=== PATIENT | female | born 1960 | race Caucasian/White ===

== ENCOUNTER → 2017-09-07 | Outpatient (CLI) | payer OTHER ==
[~2017-09-07] MED LIST: ATOR20TA65 PO; DULA0.75 SC; FEN145 PO; GLY5 FT; KET10 PO; LANI SUBQ; LEVO750T25 PO; LISI-374 PO; LOR5 PO; MECL12.5 PO; MET500 PO; METF-409 PO; METF-420 PO
== END ==
LOC: LAB 14:34
PROVIDERS: ATTEND Surgery
DX: Z02.9 Encounter for administrative examinations, unspecified (principal)
CPT/HCPCS: 88305

== ENCOUNTER 2018-02-02 16:35 | Emergency (ER) | payer OTHER ==
[~2018-02-02 16:35] MED LIST changes: -METF-420 PO; +METF-421 PO
[2018-02-02 16:39] VITALS: BP 123/37
--- NOTE | 2018-02-02 16:40 | ER Report ---
History and Physical Time Seen By MD: 16:41 HPI/ROS CHIEF COMPLAINT: Left knee pain HISTORY OF PRESENT ILLNESS: This is a 57-year-old female presents to the emergency department for left knee pain. Patient states that around 1:30 today she was transporting groceries into her house and ran into the door jam of her home injuring her left knee. Patient states that she's been at home keeping the leg elevated applying ice, took 800 mg of ibuprofen and states the pain is excruciating. Patient does have some tingling in the lower extremity. Patient is unable to ambulate with the left leg. Unable to bend the knee without significant pain. Small amount of swelling noted to the patella. Denies any other concerns at this time. No chest pain or shortness of breath. REVIEW OF SYSTEMS: Respiratory: No cough, no dyspnea. Cardiovascular: No chest pain, no palpitations. Gastrointestinal: No vomiting, no abdominal pain. Musculoskeletal: As above. Allergies: Coded Allergies: Penicillins (Verified Allergy, Severe, ANAPHYLAXIS, 11/23/16) Home Meds Reported Medications Dapagliflozin Propanediol (Farxiga) 10 Mg Tablet, 1 TAB PO DAILY 02/02/18 Dulaglutide (Trulicity) 0.75 Mg/0.5 Ml Pen.injctr, SC QWEEK 11/23/16 Insulin Glargine (LANTUS) 100 Unit/Ml Soln, 92 UNIT SUBQ, ML 11/23/16 Atorvastatin Calcium (ATORVASTATIN CALCIUM) 20 Mg Tablet, 1 TAB PO QDAY, TAB TAKE ONE TABLET BY MOUTH ONCE A DAY AT BED TIME 12/04/13 Lisinopril (LISINOPRIL) 40 Mg Tablet, 40 MG PO QDAY 12/04/13 Fenofibrate,Micronized (TRICOR) 145 Mg Tab, 145 MG PO QDAY, #10 TAB TAKE 1 TABLET BY MOUTH DAILY 12/04/13 Metformin Hcl (METFORMIN HCL) 1,000 Mg Tablet, 1 TAB PO BID TAKE ONE TABLET BY MOUTH TWO TIMES A DAY 12/04/13 Past Medical/Surgical History The patient has a past medical and surgical history of hypertension hype rcholesterolemia, arthritis, type II diabetes, Crohn biopsy on cervix, melanoma excision from the arm. Reviewed Nurses Notes: Yes Hx Smoking: No Hx Substance Use Disorder: No Hx Alcohol Use: No Constitutional Vital Sign - Last 24 Hours 02/02/18 02/02/18 16:39 17:23 Temp 98.3 Pulse 71 Resp 16 B/P (MAP) 123/37 Pulse Ox 95 O2 Delivery Room Air O2 Flow Rate 2.0 Physical Exam General Appearance: The patient is alert, has no immediate need for airway protection and no current signs of toxicity. Eyes: Pupils equal and round no injection. Respiratory: Chest is non tender, lungs are clear to auscultation. Cardiac: regular rate and rhythm. Gastrointestinal: Abdomen is soft and non tender, no masses, bowel sounds no rmal. Musculoskeletal: Neck: Neck is supple and non tender. Extremities decreased range of motion, patient is able to extend the leg, suprapatellar swelling with some mild redness, no open wounds or crepitus or obvious deformities identified. No joint laxity. Skin: No rashes or lesions. DIFFERENTIAL DIAGNOSIS: After history and physical exam differential diagnosis was considered for contusion, patellar fracture, tibial plateau fracture and joint effusion. Medical Decision Making EKG/Imaging Imaging KNEE 4 VIEW LEFT COMPARISON: 11/08/2015. HISTORY: evaluate for patellar fx , trip and fall injury TECHNIQUE: 3 views FINDINGS: BONES: Mild medial compartment degenerative narrowing with small medial intercondylar notch osteophyte. Minimal patellar undersurface spurring along its far lateral margin. No other significant degenerative changes and no acute fracture or malalignment. Specifically there is no discrete patellar fracture i dentified.. SOFT TISSUES: Negative. No visible soft tissue swelling. EFFUSION: Moderate size suprapatellar effusion without layering to suggest hemarthrosis or lipohemarthrosis.. OTHER: Negative. IMPRESSION: 1. No evidence of acute patellar or other fracture in the left knee. 2. Moderate size effusion. Report Dictated By: Bhavin Arana at 02/02/2018 5:31 PM Report E-Signed By: Bhavin Arana at 02/02/2018 5:34 PM WSN:[id number] ED Course/Re-evaluation ED Course The patient was admitted to room. History and physical obtained. Differential diagnoses were considered. An IV was started. 4 mg IV Zofran and 2 mg IV morphine were given. An x-ray of the left knee showing no patellar fracture or any other acute osseous abnormalities, did show an effusion. I did review these results with the patient. I did tell the patient that this is likely a contusion and will resolve. The patient's knee was wrapped with an Yousif wrap and she was placed in a knee immobilizer. Patient does have crutches at home that she will use. Patient will follow-up with [facility] tomorrow. The patient had no other questions or concerns and was discharged home. Decision to Disposition Date: Feb 02, 2018 Decision to Disposition Time: 18:06 Depart Departure Latest Vital Signs Vital Signs Date Time Temp Pulse Resp B/P (MAP) Pulse Ox O2 Delivery O2 Flow Rate FiO2 02/02/18 17:23 2.0 02/02/18 16:39 98.3 71 16 123/37 95 Room Air Impression: Primary Impression: Left knee injury Condition: Improved Disposition: HOME OR SELF-CARE Referrals: YESSENIA ABARCA (PCP) [facility] 1 Day Patient Instructions: Contusion in Adults (ED), Knee Pain (ED) Additional Instructions: Wear the knee brace for comfort. I just the Yousif wrap as needed for the swelling. Use the crutches as needed. Follow-up with [facility] tomorrow. Take ibuprofen or Tylenol as needed for pain. Drink plenty of water. Get plenty of rest. Return to the emergency department for any other concerns or worsening symptoms. Problem Qualifiers Primary Impression: Left knee injury Encounter type: initial encounter Qualified Codes: S89.92XA - Unspecified injury of left lower leg, initial encounter ULICES RICE-BC Feb 02, 2018 16:40
[2018-02-02] MEDS ORDERED: DAPA10TA PO (16:43)
[2018-02-02] MEDS ORDERED: MORPHINE 2 MG/ML SYR IVP ONE (17:00)
[2018-02-02] MEDS ORDERED: ONDANSETRON 4 MG/2 ML VIAL IVP ONE (17:00)
--- NOTE | 2018-02-02 17:36 | RADIOLOGY IMAGING REPORT ---
FACILITY: [facility] PATIENT NAME: Valentine Alonzo : 1960 MR: [id number] V: [id number] EXAM DATE: ORDERING PHYSICIAN: ULICES RICE TECHNOLOGIST: Location: [facility] [place] Patient: Valentine Alonzo : 1960 Visit/Account:[id number] Date of Sevice: 02/02/2018 KNEE 4 VIEW LEFT COMPARISON: 11/08/2015. HISTORY: evaluate for patellar fx , trip and fall injury TECHNIQUE: 3 views FINDINGS: BONES: Mild medial compartment degenerative narrowing with small medial intercondylar notch osteophy te. Minimal patellar undersurface spurring along its far lateral margin. No other significant degener ative changes and no acute fracture or malalignment. Specifically there is no discrete patellar fract ure identified.. SOFT TISSUES: Negative. No visible soft tissue swelling. EFFUSION: Moderate size suprapatellar effusion without layering to suggest hemarthrosis or lipohemar throsis.. OTHER: Negative. IMPRESSION: 1. No evidence of acute patellar or other fracture in the left knee. 2. Moderate size effusion. Report Dictated By: Bhavin Arana at 02/02/2018 5:31 PM Report E-Signed By: Bhavin Arana at 02/02/2018 5:34 PM WSN:[id number]
== END 2018-02-02 18:15 | disposition home or self-care (01) ==
LOC: ER 16:45
DX: S89.92XA Unspecified injury of left lower leg, initial encounter (principal)
CPT/HCPCS: 73564; 99283; J2270; J2405; L1830

== ENCOUNTER → 2018-04-06 | Outpatient (CLI) | payer OTHER ==
[~2018-04-06] MED LIST changes: +DAPA10TA PO; -METF-421 PO; +METF-452 PO
--- NOTE | 2018-04-06 16:51 | RADIOLOGY IMAGING REPORT ---
FACILITY: [facility] PATIENT NAME: Valentine Alonzo : 1960 MR: [id number] V: [id number] EXAM DATE: ORDERING PHYSICIAN: YESSENIA ABARCA TECHNOLOGIST: [facility] Patient: Valentine Alonzo : 1960 Visit/Account:[id number] Date of Sevice: 04/06/2018 Exam type: VENOUS DOPP LOW LEFT EXTREMITY History: Left leg pain and swelling 1-2 weeks Comparison: None. Findings: The left lower examining veins were imaged including the left common femoral vein greater saphenous v ein superficial femoral vein popliteal vein posterior tibial vein peroneal vein anterior tibial vein revealing no evidence of intraluminal thrombi the veins were compressible and demonstrated augmentati on IMPRESSION: 1. No sonographic evidence DVT involving the left lower extremity veins Report Dictated By: Jory Del Valle MD at 04/06/2018 4:46 PM Report E-Signed By: Jory Del Valle MD at 04/06/2018 4:47 PM WSN:[id number]
== END ==
LOC: US 15:33
PROVIDERS: ATTEND Nurse Practitioner Family
DX: M79.605 Pain in left leg (principal)